=== PATIENT | male | born 1990 | race American Indian/Alaskan Native ===

== ENCOUNTER 2017-07-21 11:54 | Emergency (ER) | payer OTHER ==
[~2017-07-21] VITALS: Ht 172.7 cm; Wt 77.1 kg
[2017-07-21] MEDS ORDERED: CHLORDIAZEPOXIDE5 MG PO (12:12)
[2017-07-21] MEDS ORDERED: MECLIZINE HCL25 M1 PO (12:13)
[2017-07-21] MEDS ORDERED: KEFLEX500 MG PO (12:14)
== END 2017-07-21 13:28 | disposition home or self-care (01) ==
LOC: ED 11:54
DX: S61.511A Laceration without foreign body of right wrist, initial encounter (principal); S51.851A Open bite of right forearm, initial encounter; F17.200 Nicotine dependence, unspecified, uncomplicated; Z88.1 Allergy status to other antibiotic agents; Y04.1XXA Assault by human bite, initial encounter
CPT/HCPCS: 96372; 99283; J0696

== ENCOUNTER 2023-01-01 23:20 | Emergency (ER) | payer OTHER ==
[~2023-01-01] VITALS: Ht 172.7 cm; Wt 79.4 kg
[~2023-01-01 23:20] MED LIST: CHLORDIAZEPOXIDE5 MG PO; KEFLEX500 MG PO; MECLIZINE HCL25 M1 PO
[2023-01-02] MEDS ORDERED: BACTRIM DS TAB1 EACH PO (00:03)
[2023-01-02] MEDS ORDERED: ULTRAM50 MG PO (00:10)
== END 2023-01-02 00:25 | disposition home or self-care (01) ==
LOC: ED 23:20
PROC: 0H9EXZZ Drainage of Left Lower Arm Skin, External Approach (ICD-10-PCS; principal; 2023-01-01)
DX: L02.414 Cutaneous abscess of left upper limb (principal); L02.413 Cutaneous abscess of right upper limb; F17.200 Nicotine dependence, unspecified, uncomplicated
CPT/HCPCS: 10060; 99282-25; A9270